=== PATIENT | male | born 1960 | race Caucasian/White ===

== ENCOUNTER 2022-08-07 00:10 | Emergency (ER) | payer OTHER ==
[~2022-08-07] VITALS: Ht 177.8 cm; Wt 72.6 kg
[2022-08-07 00:26] VITALS: BP 123/76
--- NOTE | 2022-08-07 00:35 | NUR ---
NUMBNESS ON THE RIGHT FINGERS SINCE 3-4 DAYS AGO HAD CUT ON THE RIGHT MIDDLE FINGER YEARS AGO NO MED HX [facility]
[2022-08-07 00:38] VITALS: BP 123/76
[2022-08-07 02:21] LABS: ANION GAP 13.3 (8-16); CARBON DIOXIDE 29.1 mmol/L (21-32); CREATININE 0.9 mg/dL (0.6-1.3); POTASSIUM 4.4 mmol/L (3.5-5.1)
--- NOTE | 2022-08-07 04:50 | NUR ---
PT TAKEN TO CT
--- NOTE | 2022-08-07 05:01 | NUR ---
PT RETURN FROM CT
[2022-08-07] MEDS ORDERED: NAPR-54 PO (06:19)
--- NOTE | 2022-08-07 06:54 | NUR ---
Patient discharged with v/s stable. Written and verbal after care instructions given and explained. Patient verbalized understanding. Ambulatory with steady gait. All questions addressed prior to discharge. Advised to follow up with PMD.
== END 2022-08-07 06:54 | disposition home or self-care (01) ==
LOC: MED 00:10
DX: R20.2 Paresthesia of skin (principal); Z79.899 Other long term (current) drug therapy
CPT/HCPCS: 36415; 70450; 72125; 80048; 99284